=== PATIENT | female | born 1940 | race Caucasian/White ===

== ENCOUNTER → 2017-12-03 | Day surgery (SDC) | payer MEDICARE ==
[2017-12-02 12:02] LABS: BASOPHILS % 0.4 % (0.0-1.0); EOSINOPHILS % 0.3 % (0.0-6.0); HEMATOCRIT 36.2 % (34.2-44.1); HEMOGLOBIN 12.7 g/dL (12.0-16.0); LYMPHOCYTES # (AUTO) 1.3 (1.0-3.2); LYMPHOCYTES % 16.4 % (18.0-39.1); MEAN CORPUSCULAR HEMOGLOBIN 31.6 pg (28-32); MEAN CORPUSCULAR HGB CONC 35.1 g/dL (31-35); MONOCYTES # (AUTO) 0.6 (0.2-0.8); MONOCYTES % 7.7 % (4.4-11.3); NEUTROPHILS # (AUTO) 5.8 (2.1-6.9); NEUTROPHILS % 74.8 % (38.7-80.0); PLATELET COUNT 192 x10e3/uL (140-360); RED BLOOD COUNT 4.02 x10e6/uL (3.6-5.1); RED CELL DISTRIBUTION WIDTH 12.2 % (11.7-14.4)
[~2017-12-03] MED LIST: AMLODIPINE BESYL5 MG PO; ASPIRIN81 MG; B-121000 MCG; CLONIDINE HCL0.1 MG PO; CYCLOBENZAPRINE10 MG PO; CYMBALTA60 MG PO; FENOFIBRATE160 MG PO; FENTANYL CITRATE/PF 100MCG/2 ML INJ ONE; HUMULIN R500 UNIT/1 SC; HYDRALAZINE HCL25 MG PO; HYDROCODON-ACE1 EAC9 PO; HYOSCYAMINE SULFATE 0.5 MG/ML AMP ONE; LEVOTHYROXINE150 MCG PO; LIDOCAINE HCL 2% LOCAL INJ 5 ML SDV VIAL INJ ONE; LOSARTAN POTAS100 MG PO; LOSARTAN-HCTZ1 EAC1 PO; METOPROLOL TART50 MG PO; MIDAZOLAM HCL 2 MG/2 ML VIAL ONE; OMEGA 3 FISH O1 EACH PO; PHENYLEPHRINE HCL 1% 10 MG/ML VIAL ONE; PREMARIN0.625 MG PO; PROPOFOL IV EMULSION 10 MG/ML 50 ML VIAL ONE; SIMVASTATIN80 MG PO; TYLENOL; VITAMIN D400 UNIT PO; [UNRECOGNIZED DRUG - OTHER]
--- NOTE | 2017-12-03 14:27 | Operative Report ---
DATE OF PROCEDURE: December 03, 2017 REFERRING PHYSICIAN: Dr. Geoffrey Julian PROCEDURES PERFORMED 1. Esophagogastroduodenoscopy with biopsies. 2. Colonoscopy with polypectomy. INDICATIONS FOR ESOPHAGOGASTRODUODENOSCOPY: Upper abdominal pain. INDICATIONS FOR COLONOSCOPY: Colorectal cancer screening. MEDICATION: Patient was done under MAC. Please see anesthesiologist's note. PROCEDURE: With patient in left lateral decubitus position, a flexible fiberoptic Olympus gastroscope was introduced into the esophagus under direct visualization without any difficulty. There was some patchy erythema noted in distal esophagus. The scope was then advanced with ease into the stomach and mucosa overlying the antrum and the body revealed some patchy erythema and low-grade to moderate edema and biopsies were obtained and sent to stain for H. pylori. Pylorus appeared to be of normal contour and shape, was intubated with ease and the scope was advanced all the way to the 2nd portion of the duodenum. The scope was then withdrawn slowly and mucosa overlying the proximal 2nd portion of the duodenum appeared to be within normal limits. An approximately 5 mm ulcer with somewhat heaped up margins in the distal bulb was noted and there was no active bleeding or stigmata of recent hemorrhage. The scope was then withdrawn back into the stomach and retroflexed and mucosa overlying the fundus and cardia appeared to be within normal limits. The scope was then straightened out. Stomach was decompressed. The scope was subsequently withdrawn. Patient tolerated the procedure well. IMPRESSION 1. Mild distal esophagitis. 2. Gastritis biopsied. Biopsies sent to stain for H. pylori. 3. Duodenal ulcer distal bulb without active bleeding. PLAN: Follow up histology. Initiate Protonix 40 mg 1 p.o. q.a.m. a.c. Patient was then turned around and after adequate lubrication of the anal canal, a flexible fiberoptic Olympus colonoscope was inserted into the rectum with ease and advanced all the way to the cecum. It was then withdrawn slowly. Mucosa overlying the cecum appeared to be within normal limits. There was some scattered diverticular disease throughout. One polyp was hot biopsied from the transverse colon. The descending and sigmoid revealed some scattered diverticular disease, otherwise were within normal limits. The rectum appeared to be within normal limits. The scope was then retroflexed into the distal rectum and small internal hemorrhoids were noted, none of which was actively bleeding. The scope was then straightened out. The rectosigmoid area as well as the distal rectal area were decompressed. The scope subsequently withdrawn. Patient tolerated the procedure well. IMPRESSION 1. Diverticulosis. 2. Transverse colon polyp hot biopsied. 3. Internal hemorrhoids, none actively bleeding. PLAN: Follow up histology. Initiate high-fiber low-fat diet. Initiate high-fiber supplement. Patient might benefit from a followup colonoscopy in 3 to 5 years. Job#: [id number] DG cc: DR Sha JULIAN
== END | disposition home or self-care (01) ==
LOC: OR 09:47
PROVIDERS: ATTEND Internal Medicine Gastroenterology
DX: K21.0 Gastro-esophageal reflux disease with esophagitis (principal); Z12.11 Encounter for screening for malignant neoplasm of colon; K26.9 Duodenal ulcer, unspecified as acute or chronic, without hemorrhage or perforation; K29.50 Unspecified chronic gastritis without bleeding; K31.9 Disease of stomach and duodenum, unspecified; K57.30 Diverticulosis of large intestine without perforation or abscess without bleeding; D12.3 Benign neoplasm of transverse colon; K64.8 Other hemorrhoids; F17.210 Nicotine dependence, cigarettes, uncomplicated; E03.9 Hypothyroidism, unspecified; E11.9 Type 2 diabetes mellitus without complications; Z79.4 Long term (current) use of insulin; I10 Essential (primary) hypertension; E78.5 Hyperlipidemia, unspecified; D64.9 Anemia, unspecified; Z01.810 Encounter for preprocedural cardiovascular examination; Z01.812 Encounter for preprocedural laboratory examination; Z79.82 Long term (current) use of aspirin
CPT/HCPCS: 36415 ×2; 43239; 45384; 82948; 85025; 88305; 88312; 93005; J1980; J2001; J2250; J2370; 45378

== ENCOUNTER → 2019-01-26 | Day surgery (SDC) | payer MEDICARE ==
[2019-01-24 10:51] LABS: BASOPHILS % 0.6 % (0.0-1.0); EOSINOPHILS # (AUTO) 0.1 (0.0-0.4); EOSINOPHILS % 2.1 % (0.0-6.0); HEMATOCRIT 31.3 % (34.2-44.1); HEMOGLOBIN 10.6 g/dL (12.0-16.0); LYMPHOCYTES # (AUTO) 1.3 (1.0-3.2); LYMPHOCYTES % 27.9 % (18.0-39.1); MEAN CORPUSCULAR HEMOGLOBIN 30.9 pg (28-32); MEAN CORPUSCULAR HGB CONC 33.9 g/dL (31-35); MEAN CORPUSCULAR VOLUME 91.3 fL (81-99); MONOCYTES # (AUTO) 0.4 (0.2-0.8); MONOCYTES % 8.6 % (4.4-11.3); NEUTROPHILS # (AUTO) 2.9 (2.1-6.9); NEUTROPHILS % 60.4 % (38.7-80.0); PLATELET COUNT 218 x10e3/uL (140-360); RED BLOOD COUNT 3.43 x10e6/uL (3.6-5.1); RED CELL DISTRIBUTION WIDTH 11.8 % (11.7-14.4)
[~2019-01-26] MED LIST changes: +EPINEPHRINE HCL 1:1000 1ML 1 MG/ML AMP ONE; -FENTANYL CITRATE/PF 100MCG/2 ML INJ ONE; +HUMULOG SC; -HYOSCYAMINE SULFATE 0.5 MG/ML AMP ONE; +IRBESARTAN150 MG PO; -LIDOCAINE HCL 2% LOCAL INJ 5 ML SDV VIAL INJ ONE; -PHENYLEPHRINE HCL 1% 10 MG/ML VIAL ONE; +TRESIBA SC; -TYLENOL; +TYLENOL PM PO; +TYLENOL PO
--- OUTSIDE RECORDS SUMMARY | 2019-01-26 12:03 | XMS REPORT ---
Author Author [facility] Address Unknown Phone Unavailable Care Team Providers Care Assembling Motor Builder Name Role Phone Unavailable Unavailable Payers Payer Name Policy Type Policy Number Effective Date Expiration Date Problems This patient has no known problems. Allergies, Adverse Reactions, Alerts Allergy Name Allergy Type Status Severity Reaction(s) Onset Date Inactive Date Treating Clinician Comments iodine DA Active U 2017-08-04 00:00:00 codeine DA Active U 2017-08-04 00:00:00 cephalexin DA Active U 2017-08-04 00:00:00 fenofibrate DA Active U 2017-08-04 00:00:00 Medications This patient has no known medications. Results Test Description Test Time Test Comments Text Results Atomic Results Result Comments - XR FINGER(S) 2+V LT 2018-11-30 11:10:00 Name: MELVA COBOS [facility] : 1940 Age/S:78 /F [address] [facility] Unit#:[id number] Loc: [place] [address] Phys: Keith Navarrete MD Dis Date: PHONE #: [phone] Status: REG ER FAX #: [phone] Exam Date: 11/30/2018 Reason: pain, trauma EXAMS: CPT CODE: [id number] XR FINGER(S) 2+[place] [address] HISTORY: Pain after trauma. COMPARISON: None available. 2 views of the left fourth digit: Acute traumatic comminuted fracture of the volar margin of the distal fourth phalanx with mild volar displacement. Intra-articular extension. Soft tissue swelling. Narrowed joint spaces. Osteopenia. IMPRESSION: Acute traumatic oblique fracture along the volar margin of the distal fourth phalanx with volar and inferior displacement of the distal fracture fragment. at 1110 Reported and signed by: Pineda Moreau M.D. CC: Keith Navarrete MD Technologist: Ting Hylton Trnscrpt Data: 11/30/2018 (1110) t.[email or web address] Orig Print D/T: S: 11/30/2018 (1113) PAGE 1 Signed Report
[2019-01-26 14:40] VITALS: BP 133/55
--- NOTE | 2019-01-26 22:43 | Operative Report ---
DATE OF PROCEDURE: 01/26/2019 SURGEON: Curtis Amaral MD PROCEDURE: EGD with biopsies. INDICATIONS FOR EGD: Upper abdominal pain, heartburn, indigestion. MEDICATIONS: The patient was done under MAC, please see anesthesiologist's note. PROCEDURE IN DETAIL: With the patient in left lateral decubitus position, flexible fiberoptic Olympus gastroscope was introduced into the esophagus under direct visualization without any difficulty. There was some patchy erythema noted in distal esophagus. The scope was then advanced with ease into the stomach. Mucosa overlying the antrum and the body revealed some diffuse erythema, mild to moderate edema and biopsies were obtained and sent to stain for H pylori. An approximately 4-mm ulcer with somewhat of a heaped margins was noted in the peripyloric area. There was no active bleeding or stigmata of recent hemorrhage. Biopsies were obtained. The pylorus was intubated with ease and the scope was advanced all the way to the second portion of the duodenum. Mucosa overlying the proximal second portion appeared to be within normal limits. An approximately 5-mm ulcer was noted in the distal duodenal bulb at the junction of the bulb and the second portion, there were no active bleeding or stigmata of recent hemorrhage. The biopsies were obtained from the second portion as well as from the duodenal bulb to rule out sprue. The scope was then withdrawn back into the stomach and retroflexed and mucosa overlying the fundus and the cardia appeared to be within normal limits. The scope was then straightened out, it was subsequently withdrawn. The patient tolerated procedure well. IMPRESSION: 1. Distal esophagitis, mild. 2. Gastritis, biopsied. Biopsies sent to stain for Helicobacter pylori. 3. Gastric ulcer. Peripyloric area, biopsied. 4. Approximately 5-mm ulcer distal bulb with heaped up margins without active bleeding or stigmata of recent hemorrhage. 5. Rule out sprue. PLAN: Follow up histology. Initiate Protonix 40 mg one p.o. q.a.m. before meals and Carafate 2 g p.o. before meals b.i.d. Curtis Amaral MD [facility]/MODL /[id number] cc: Nora Doan MD
== END | disposition home or self-care (01) ==
LOC: OR 12:00
PROVIDERS: ATTEND Internal Medicine Gastroenterology
DX: K20.9 Esophagitis, unspecified (principal); K29.70 Gastritis, unspecified, without bleeding; R10.13 Epigastric pain; E11.9 Type 2 diabetes mellitus without complications; I10 Essential (primary) hypertension; K57.30 Diverticulosis of large intestine without perforation or abscess without bleeding; Z90.49 Acquired absence of other specified parts of digestive tract; K25.9 Gastric ulcer, unspecified as acute or chronic, without hemorrhage or perforation; K29.80 Duodenitis without bleeding; Z88.8 Allergy status to other drugs, medicaments and biological substances; Z91.013 Allergy to seafood; Z79.82 Long term (current) use of aspirin; Z79.4 Long term (current) use of insulin
CPT/HCPCS: 36415 ×2; 43239; 82948; 85025; 88300; 88305; 88312; 93005; J0171; J2250; J2704

== ENCOUNTER 2019-02-03 08:28 | Inpatient (IN) | payer MEDICARE ==
[~2019-02-03] VITALS: Ht 162.6 cm; Wt 65.8 kg
[2019-02-03] VITALS (9 sets, daily range): BP systolic 115–159; BP diastolic 50–87
[~2019-02-03 08:28] MED LIST changes: -EPINEPHRINE HCL 1:1000 1ML 1 MG/ML AMP ONE; -MIDAZOLAM HCL 2 MG/2 ML VIAL ONE; -PROPOFOL IV EMULSION 10 MG/ML 50 ML VIAL ONE
[2019-02-03] MEDS ORDERED: SODIUM CHLORIDE 0.9% 1000ML 1,000 ML IV STA (08:44)
[2019-02-03 09:18] LABS: BILIRUBIN,URINE NEGATIVE (NEGATIVE); CLARITY,URINE CLEAR (CLEAR); COLOR,URINE YELLOW (YELLOW); KETONES,URINE NEGATIVE (NEGATIVE); LEUKOCYTE ESTERASE ,URINE NEGATIVE (NEGATIVE); NITRITE,URINE NEGATIVE (NEGATIVE); PROTEIN,URINE DIPSTICK 1+ (NEGATIVE); URINE UROBILINOGEN 0.2 mg/dL (0.2 - 1)
[2019-02-03 09:19] LABS: HEMATOCRIT 31.6 % (34.2-44.1); HEMOGLOBIN 10.8 g/dL (12.0-16.0); MEAN CORPUSCULAR HGB CONC 34.2 g/dL (31-35); MEAN CORPUSCULAR VOLUME 90.8 fL (81-99); PLATELET COUNT 200 x10e3/uL (140-360); RED BLOOD COUNT 3.48 x10e6/uL (3.6-5.1)
[2019-02-03 09:26] LABS: BACTERIA,URINE RARE /HPF; EPITHELIAL CELLS,URINE FEW /LPF; RBC,URINE 0-5 /HPF (0-5); WBC,URINE (MAN) 0-5 /HPF (0-5)
[2019-02-03 09:40] LABS: ALBUMIN 3.6 g/dL (3.5-5.0); ALBUMIN/GLOBULIN RATIO 1.1 (0.8-2.0); ANION GAP 15.3 mmol/L (8-16); CALCIUM 9.8 mg/dL (8.4-10.2); CREATININE, SERUM 1.28 mg/dL (0.57-1.11); POTASSIUM 4.3 mmol/L (3.5-5.1)
--- NOTE | 2019-02-03 09:40 | Diagnostic Imaging Report ---
Chest, 1 view, 02/03/2019. History: Chest pain. Comparison: None available. Findings: The cardiomediastinal silhouette and pulmonary vasculature are within normal limits for a portable exam. There is no focal consolidation or pleural effusion. There are no acute osseous or soft tissue abnormalities. Impression: No acute cardiopulmonary abnormality. Signed by: Akhil Whitten on 02/03/2019 9:37 AM
[2019-02-03 10:18] LABS: MAGNESIUM 1.9 MG/DL (1.3-2.1)
[2019-02-03 10:22] LABS: INR 0.86; PROTHROMBIN TIME 12.2 seconds (11.9-14.5)
[2019-02-03 10:41] LABS: CREATINE KINASE MB 7.5 ng/mL (0-4.3)
[2019-02-03 11:04] LABS: PARTIAL THROMBOPLASTIN TIME 28.6 seconds (23.8-35.5)
[2019-02-03] MEDS ORDERED: ONDANSETRON HCL INJ 2MG/ML 2ML 2 MG/ML VIAL IV PRN ×2 (12:00→12:15)
[2019-02-03] MEDS ORDERED: HEPARIN 25,000 UNIT 700 UNIT in DEXTROSE 5% 250ML 250 ML IV SCH (12:00)
[2019-02-03] MEDS ORDERED: MORPHINE SULFATE 2 MG/ML SYR 1ML IV PRN (12:00)
--- NOTE | 2019-02-03 12:08 | NUR ---
dr henao at pt bedside
[2019-02-03] MEDS ORDERED: KETOROLAC TROMETHAMINE 30 MG/ML VIAL IV STA (12:10)
[2019-02-03] MEDS ORDERED: NITROGLYCERIN 0.4 MG SUBL SL PRN (12:15)
[2019-02-03] MEDS ORDERED: SODIUM CHLORIDE FLUSH 10 ML SYR INJ PRN (12:15)
[2019-02-03] MEDS ORDERED: METOPROLOL TARTRATE 25 MG TAB PO SCH (12:30)
[2019-02-03] MEDS ORDERED: HEPARIN SOD (PORCINE) 5,000 UNIT/ML VIAL IV ONE (12:30)
[2019-02-03] MEDS ORDERED: SODIUM CHLORIDE 0.9% 100 ML 100 ML ONE (12:46)
[2019-02-03] MEDS ORDERED: GADOBENATE DIMEGLUMINE 1 ML IV ONE (12:46)
--- NOTE | 2019-02-03 13:34 | NUR ---
pt anxious prior to mri states she needs something to put her asleep; md gives verbal order for 1 mg ativan iv and to retrieve via override to give to pt immediately prior to transport to mri
[2019-02-03] MEDS ORDERED: LORAZEPAM INJ 2 MG/ML VIAL IV ONE (14:00)
--- NOTE | 2019-02-03 14:01 | NUR ---
Jean Carlos carrero in ED - 02/03/19 at 1401 by JOE jodie cervantes at pt bedside to insert picc line
[2019-02-03] MEDS ORDERED: LIDOCAINE HCL 2% LOCAL 20 ML VIAL ONE (14:26)
[2019-02-03] MEDS ORDERED: HEPARIN SOD/SOD CHLORIDE 2,000 ML ONE (14:26)
[2019-02-03] MEDS ORDERED: HEPARIN SOD (PORCINE) 1000 UNIT/ML 30ML ONE (14:26)
[2019-02-03] MEDS ORDERED: IOPAMIDOL 370 MG/ML 200 ML INFUS..BTL INJ ONE (14:26)
[2019-02-03] MEDS ORDERED: SODIUM CHLORIDE 0.9% 1000ML 1,000 ML ONE (14:27)
[2019-02-03] MEDS ORDERED: DIPHENHYDRAMINE HCL INJ 50 MG/ML VIAL ONE (15:52)
[2019-02-03] MEDS ORDERED: FAMOTIDINE 20 MG/2 ML VIAL IV ONE (15:52)
[2019-02-03] MEDS ORDERED: HYDROCORTISONE SOD SUCCINATE 100 MG VIAL ONE (15:52)
--- NOTE | 2019-02-03 16:14 | Diagnostic Imaging Report ---
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 * T2 Haste imaging for anatomic definition. * Contrast-enhanced volume sets acquired for three-dimensional MRA reconstructions after injection of gadolinium-chelate (Multihance, 14 cc). * For more optimal morphologic evaluation, off-line advanced post-processing of the 3-D data was performed (using multiplanar, llitgmt-kerepwxfi-onjvkelqhb, and/or volume-rendered reconstructions). FINDINGS: THORACIC AORTA: The thoracic aorta is normal in course, caliber, and contour and associated with mild scattered atherosclerotic changes. No coarctation identified. There is no evidence for acute aortic pathology, such as dissection, intramural hematoma, or contained rupture. The arch vessel branching pattern is conventional. All of the arch branch vessels appear widely patent in their proximal portions. The visualized proximal abdominal aorta is normal in course, caliber and contour. Pet Counselor dimensions of the thoracoabdominal aorta are as follows: 3.6 cm at the sinuses of Valsalva (the sinotubular junction is preserved) 2.7 cm at the mid ascending aorta 2.7 cm at the distal ascending aorta 2.5 cm at the mid transverse arch 2.2 cm at the proximal descending thoracic aorta 2.4 cm at the diaphragmatic hiatus. CARDIAC CHAMBERS: The cardiac chamber sizes appear unremarkable on limited evaluation. No pericardial effusions. CHEST: The chest wall, mediastinum, and pulmonary arteries appear normal. No significant adenopathy is identified. BONES AND SOFT TISSUES: Unremarkable on limited evaluation. IMPRESSION: Normal size of the thoracic aorta with associated mild scattered atherosclerotic changes. No acute thoracic aorta pathology. Signed by: Dr. Nereida Hawk M.D. on 02/03/2019 4:10 PM
[2019-02-03] MEDS ORDERED: MIDAZOLAM HCL 2 MG/2 ML VIAL ONE (16:42)
[2019-02-03 17:00] LABS: CREATINE KINASE MB 18.6 ng/mL (0-5.0)
--- NOTE | 2019-02-03 17:25 | NUR ---
1725 bedside report received from Guillermo MIRAMONTES. Alert oriented and appropriate, PERRLA, respirations even and unlabored to room air. Pulses x4 extremities . Pedal pulses PT/DP X4 doppler and marked. Cap fill brisk < [address] Stover no fix for ICU transfer.Multivessel disease for final transfer to [address]Needs restart 1914 Heparin drip at 700u hr. Skin warm and dry integrity appears D/I. IV 20g to rt hand at 50cchr, presents healthy w/o s/s of infiltration or complaint. Abdomen soft and supple. pt offered toileting, denies need to urinate or defecate. No personal affects with patient. Family granddaughter Shayy. Pt and family verbalizes understanding of POC.. Currently w/o complaint of pain or need. ds/jodie
--- NOTE | 2019-02-03 18:45 | NUR ---
4034 Echo done at bedside. ds/rn
--- NOTE | 2019-02-03 19:00 | NUR ---
1900 Transfer to ICU 192 report handoff completed with Marina MIRAMONTES Heparin drip to restart at 7000cchr Iv remain intact w/o s/s infiltration. Deposition to [facility] 11t tonight. Pt remain NPO and nursing to f/o with glucometer check. Family on escort and Copies chart provided to icu staff for ambulance pickup. No gross issues pain,pallor,pressure or dysrhythmia. NO c/o CP or SOB voiced. ds/rn
--- NOTE | 2019-02-03 19:15 | NUR ---
RECEIVED FROM SPINNING FRAME TENDER, FLAT IN BED, AWAKE AND ALERT, OX3. DRESSING TO RIGHT GROIN C/D/I, NO HEMATOMA NOTED TO AREA. AREA OF BLANCHABLE REDNESS TO SACRUM. HEPARIN RESTARTED AT 700 UNITS PER HOUR
--- NOTE | 2019-02-03 22:37 | History and Physical ---
ADDITIONAL ATTENDING PHYSICIAN: Alvin Welch MD. CLINICAL HISTORY: This is a 78-year-old white woman, who presented to the emergency room with severe chest pain, rated at 8-9 on a scale of 10, lasting for approximately 4 hours with elevated troponin, CK-MB, but with normal ECG. This patient has had a nuclear stress test that was negative in 2017. She had a benign echocardiogram. However, over the past 6 months, she has had exertional chest pain and symptoms appear to have worsened in the last 2 months and even worse so in the last 2 weeks. On the morning of admission, she awoke with chest pain around 7 or 8 o'clock in the morning. The pain was rated 8-9 on a scale of 10. There is no associated nausea, vomiting, diaphoresis. She drove herself to the emergency room. ECG did not show any acute changes. However, the troponin was elevated. Her symptoms improved with nonsteroidal anti-inflammatory medications. She said the pain was severe, radiating to the back. The pathology laboratory director, however, was full and there were other cases in line. We decided to heparinize the patient and do an MRI scan to rule out aortic dissection. She is said to be allergic to seafood, but there is no previous history of iodine allergies. PAST MEDICAL HISTORY: Remarkable for hypothyroidism, hyperlipidemia, hypertension, gastritis, pancreatitis. MEDICATIONS: She is taking Humalog 12 units with lunch and dinner, Tresiba 54 units at bedtime, hydralazine 25 mg 2 tablets p.o. b.i.d., aspirin 81 mg daily, simvastatin 80 mg daily, levothyroxine 125 mcg daily, clonidine 0.1 mg p.o. b.i.d., irbesartan 300 mg p.o. daily. PAST SURGICAL HISTORY: Included shoulder surgery, neck surgery, cholecystectomy, trigger finger, hysterectomy, bladder suspension, EGD. FAMILY HISTORY: Father at 43 from brain tumor. had CVA and atrial fibrillation. Mother at age 82. SOCIAL HISTORY: She denies smoking and drinking. ALLERGIES: TO KEFLEX, SEAFOOD, FENOFIBRATE AND CODEINE. REVIEW OF SYSTEMS: Noncontributory. PHYSICAL EXAMINATION: GENERAL: She is obese, alert, coherent. VITAL SIGNS: Stable. CARDIAC: Jugular veins were not distended. S1, S2 were regular. There were no appreciable murmurs. LUNGS: Clear. ABDOMEN: Soft. Bowel sounds were present. EXTREMITIES: Showed no cyanosis, clubbing, or edema. IMPRESSION: 1. Rri-BJ-hyainczbn myocardial infarction. 2. Chest pain radiating to the back, rule out aortic dissection. 3. Hypertension. 4. Type 2 diabetes. 5. Hypothyroidism. 6. Hyperlipidemia. 7. History of gastritis. 8. Noncardiac surgery as mentioned above. RECOMMENDATIONS: MRA of the aorta to rule out dissection, cardiac catheterization, possible angioplasty and stenting. Risks, benefits, alternatives explained and understood. The patient is agreeable to proceed. MD MADAY Bah/NAYELY /[id number]
--- NOTE | 2019-02-04 00:23 | Operative Report ---
DATE OF PROCEDURE: SURGEON: Rico Stover MD CLINICAL HISTORY: This is a 78-year-old white woman, admitted via the emergency room because of several months of exertional chest pain, worsening and became very severe on the morning of admission. She was treated with heparin, nitroglycerin, and aspirin with gradual improvement of symptoms. EKG showed no acute changes. It was suspected that patient may have a circumflex lesion since she had pain in the back. MRI scan of the aorta was pending. However, subsequent left ventriculogram and aortogram did not show any evident dissection. The cardiac catheterization was recommended because troponin was elevated at 0.7 and CK-MB was slightly elevated. After discussing various diagnostic treatment alternatives, the patient agreed to proceed. At the time of the initial visit, the patient could not go immediately to the clinical laboratory director because there were other cases ongoing. When the room was available, we proceed. The MRI report was still pending at the time we started the procedure. DESCRIPTION OF PROCEDURE: The patient was brought to the cardiac catheterization laboratory in a fasting and sedated state. Using aseptic technique, Betadine skin preparation, lidocaine local anesthesia, the right femoral artery was entered using the modified Seldinger technique without difficulties. A 4-Thai sheath was inserted inside of this vessel. Diagnostic coronary angiography was carried out using 4-Thai #4 Fe catheter. The patient had bilateral calcified vessels. There was a left main 60% to 70% stenosis may be even a thrombus. The circumflex proximal at the ostium at the takeoff from the left main had a 99% stenosis. The right coronary artery had 80% and 50% stenosis. Ejection fraction was 45% with inferior hypokinesis. It was felt the patient should have bypass surgery. The left ventriculogram was carried with 4-Thai pigtail catheter. All other equipment was then withdrawn. ACT was 142, but sheath was then pulled. The patient was ready to be transferred for bypass surgery. CONCLUSIONS: 1. Non-STEMI with 60% to 70% left main, possibly with thrombus. 2. 99% ostial large circumflex stenosis consistent with non-STEMI. 3. 80% and 50% RCA stenosis. The RCA is small. 4. Left ventricular ejection fraction is 45% with inferior hypokinesis. RECOMMENDATIONS: Internal mammary to LAD, vein graft to the 1st obtuse marginal artery, vein graft to the small right coronary artery. Rico K MD MADAY Stover/MODL /[id number]
[2019-02-04] MEDS ORDERED: ASPIRIN 325 MG TAB EC PO SCH (09:00)
--- NOTE | 2019-02-05 03:05 | Discharge Summary ---
CLINICAL HISTORY: This is a 78-year-old white woman seen in the emergency outpatient medical center because of non STEMI with troponin of 0.7, and the patient continued to have severe chest pain rated 9 on a scale of 10 for approximately 5 hours. Please refer to my previous dictation concerning details of current illness, past medical history, personal and social history, family history, review of systems, physical examination, and initial laboratory studies. HOSPITAL COURSE: Because the patient's ECGs showed no acute changes, and because of the patient complained of severe pain radiating to the back, we decided to rule out aortic dissection, particularly since the open hearth furnace laborer was not available due to other acute cases, ongoing care. CT scan of the chest was ordered, but the patient gave a false allergy to iodine to the emergency room physician, finally I recommended the MRA over the phone. it turned out that she vomited from eating seafood long time ago. There is no clear iodine allergy. Nevertheless, MRA was arranged and was eventually carried out, but no results were available. In the meantime, the open hearth furnace laborer became available in the afternoon, and we decided to proceed without the MRA information. ECG still showed no acute changes. I suspected due to the presentation as well. The cardiac catheterization shows 60% to 70% left main with possible thrombus distally and the ostial dominant circumflex had 99% stenosis. The small right coronary artery had sequential 50% stenosis. Both vessels proximally were calcified. The ejection fraction was 45% with inferior hypokinesis. Bypass surgery was recommended and the patient elected to go to [facility] under their own surgeon of choice. I spoke with Dr. Nikita Coronel, who accepted the patient in transfer. The patient was accordingly transferred. DISCHARGE DIAGNOSIS: Same as on admission. MD MADAY Bah/NAYELY /[id number]
== END 2019-02-03 20:35 | disposition short-term general hospital (02) | DRG 282 ==
LOC: ER 08:28 → ERHOLD 12:03 → ICU 19:15
PROVIDERS: ADMIT Internal Medicine Cardiovascular Disease; ATTEND Internal Medicine Cardiovascular Disease
PROC: 4A023N7 Measurement of Cardiac Sampling and Pressure, Left Heart, Percutaneous Approach (ICD-10-PCS; principal; 2019-02-03)
PROC: B2111ZZ Fluoroscopy of Multiple Coronary Arteries using Low Osmolar Contrast (ICD-10-PCS; 2019-02-03)
PROC: B2151ZZ Fluoroscopy of Left Heart using Low Osmolar Contrast (ICD-10-PCS; 2019-02-03)
DX: I21.4 Non-ST elevation (NSTEMI) myocardial infarction (principal); I10 Essential (primary) hypertension; E11.9 Type 2 diabetes mellitus without complications; E78.5 Hyperlipidemia, unspecified; K29.70 Gastritis, unspecified, without bleeding; E03.9 Hypothyroidism, unspecified; I25.110 Atherosclerotic heart disease of native coronary artery with unstable angina pectoris
CPT/HCPCS: 36415; 71045; 71555; 80053; 80061; 81001; 82150; 82550; 82553; 83690; 83735; 83880; 84484; 85007; 85027; 85610; 85730; 93005; 93306; 93458; 99284; C1766; J1200; J1644; J1720; J1885; J2001; J2060; J2250; J7030; Q9967

== ENCOUNTER 2023-06-09 20:36 | Emergency (ER) | payer MEDICARE ==
[~2023-06-09] VITALS: Ht 162.6 cm; Wt 65.8 kg
[2023-06-09] MEDS: SODIUM CHLORIDE 0.9% 1000ML 1,000 ML IV ONE (21:46)
[2023-06-09 22:15] LABS: BASOPHILS % 0.2 % (0.0-1.0); EOSINOPHILS # (AUTO) 0.1 (0.0-0.4); EOSINOPHILS % 0.6 % (0.0-6.0); HEMOGLOBIN 11.7 g/dL (12.0-16.0); LYMPHOCYTES # (AUTO) 1.6 (1.0-3.2); LYMPHOCYTES % 20.4 % (18.0-39.1); MEAN CORPUSCULAR HEMOGLOBIN 31.2 pg (28-32); MEAN CORPUSCULAR HGB CONC 34.4 g/dL (31-35); MEAN CORPUSCULAR VOLUME 90.7 fL (81-99); MONOCYTES # (AUTO) 0.8 (0.2-0.8); MONOCYTES % 9.4 % (4.4-11.3); NEUTROPHILS # (AUTO) 5.5 (2.1-6.9); NEUTROPHILS % 68.5 % (38.7-80.0); PLATELET COUNT 301 x10e3/uL (140-360); RED BLOOD COUNT 3.75 x10e6/uL (3.6-5.1); RED CELL DISTRIBUTION WIDTH 11.9 % (11.7-14.4); WHITE BLOOD COUNT 8.02 x10e3/uL (4.8-10.8)
[2023-06-09 22:32] LABS: ALBUMIN 3.4 g/dL (3.5-5.0); ALBUMIN/GLOBULIN RATIO 0.9 (0.8-2.0); ANION GAP 18.2 mmol/L (8-16); BILIRUBIN,TOTAL 0.7 mg/dL (0.2-1.2); CALCIUM 9.1 mg/dL (8.4-10.2); CREATININE, SERUM 2.17 mg/dL (0.57-1.11); POTASSIUM 4.2 mmol/L (3.5-5.1); TOTAL PROTEIN 7.2 g/dL (6.5-8.1)
[2023-06-09 22:38] LABS: TROPONIN I 0.007 ng/mL (0-0.300)
[2023-06-09 22:56] LABS: BILIRUBIN,URINE SMALL (NEGATIVE); CLARITY,URINE SL CLOUDY (CLEAR); COLOR,URINE YELLOW (YELLOW); GLUCOSE, URINE NEGATIVE (NEGATIVE); KETONES,URINE NEGATIVE (NEGATIVE); LEUKOCYTE ESTERASE ,URINE SMALL (NEGATIVE); NITRITE,URINE NEGATIVE (NEGATIVE); PH,URINE 5.5 (5 - 7); PROTEIN,URINE DIPSTICK 2+ (NEGATIVE); URINE UROBILINOGEN 0.2 mg/dL (0.2 - 1)
[2023-06-09 23:32] LABS: WBC,URINE (MAN) >50 /HPF (0-5)
[2023-06-09 23:33] LABS: BACTERIA,URINE MANY /HPF; EPITHELIAL CELLS,URINE FEW /LPF; RBC,URINE 0-5 /HPF (0-5)
[2023-06-09] MEDS ORDERED: MACROBID 100 M100 MG PO (23:34)
[2023-06-10] MEDS: NITROFURANTOIN MACROCRYSTALS 100 MG CAP PO ONE (00:14)
[2023-06-10] MEDS: ONDANSETRON HCL INJ 2MG/ML 2ML 2 MG/ML VIAL IV STA (00:15)
[2023-06-10 00:55] VITALS: O2SAT 100
== END 2023-06-10 00:55 | disposition home or self-care (01) ==
LOC: ER 20:44
DX: R55 Syncope and collapse (principal); U07.1 COVID-19; N39.0 Urinary tract infection, site not specified; E11.65 Type 2 diabetes mellitus with hyperglycemia; I10 Essential (primary) hypertension; G30.9 Alzheimer's disease, unspecified; F02.80 Dementia in other diseases classified elsewhere, unspecified severity, without behavioral disturbance, psychotic disturbance, mood disturbance, and anxiety; R94.31 Abnormal electrocardiogram [ECG] [EKG]
CPT/HCPCS: 36415; 70450; 71045; 80053; 81001; 82550; 84484; 85025; 93005; 99285; J2405; U0002